=== PATIENT | male | born 1960 | race American Indian/Alaskan Native ===

== ENCOUNTER 2020-08-30 10:34 | Emergency (ER) | payer OTHER ==
[2020-08-30] MEDS ORDERED: cloNIDine 0.1 MG TAB PO ONE ×2 (12:33→14:21)
--- NOTE | 2020-08-30 12:37 | Emergency Department Report ---
ED Upper Extremity Inj HPI - General Chief Complaint: Extremity Injury, Upper Stated Complaint: WRIST INJURY Time Seen by Provider: 08/30/20 12:29 Source: patient Mode of arrival: Ambulatory Limitations: No Limitations - History of Present Illness Initial Comments: Patient is a 59-year-old male presents emergency room complaints of right hand pain that began yesterday. He states that he was changing a tire and it slipped and he had to press against the car and began feeling pain in the hand. He states he did began having pain and swelling to the right hand. He denies ever injuring in the past. He denies any wrist pain, elbow pain, shoulder pain. He denies anything falling onto the hand. He denies any numbness or weakness. He states he has pain with movement with making a fist. He has a past medical history of hypertension has not taken his medication for 1 year. He states he is not sure the name of his medication he was previously on. No allergies to medications. - Related Data Previous Rx's Medication Instructions Recorded Last Taken Type Naproxen [EC-Naprosyn] 500 mg PO BID PRN #14 tablet. 08/30/20 Unknown Rx amLODIPine 10 mg PO DAILY #30 tab 08/30/20 Unknown Rx hydroCHLOROthiazide [HCTZ] 25 mg PO QDAY #30 tablet 08/30/20 Unknown Rx ED Review of Systems ROS: Stated complaint: WRIST INJURY Other details as noted in HPI Comment: All other systems reviewed and negative ED Past Medical Hx - Past Medical History Hx Hypertension: Yes - Surgical History Additional Surgical History: knee surgery - Medications Home Medications: Home Medications Medication Instructions Recorded Confirmed Last Taken Type Naproxen [EC-Naprosyn] 500 mg PO BID PRN #14 tablet. 08/30/20 Unknown Rx amLODIPine 10 mg PO DAILY #30 tab 08/30/20 Unknown Rx hydroCHLOROthiazide [HCTZ] 25 mg PO QDAY #30 tablet 08/30/20 Unknown Rx ED Physical Exam - General Limitations: No Limitations General appearance: alert, in no apparent distress - Head Head exam: Present: atraumatic, normocephalic - Eye Eye exam: Present: normal appearance - ENT ENT exam: Present: mucous membranes moist - Respiratory Respiratory exam: Absent: respiratory distress, accessory muscle use - Extremities Exam Extremities exam: Present: other (ttp to the right hand overlying the 3rd and 4th metacarpal, no ttp to the right wrist or digits, no snuffbox ttp, no deformity, neurovascularly intact) - Neurological Exam Neurological exam: Present: alert, oriented X3 - Psychiatric Psychiatric exam: Present: normal affect, normal mood - Skin Skin exam: Present: warm, dry, intact ED Course Vital Signs 08/30/20 08/30/20 08/30/20 11:43 11:45 14:10 Temperature 98.2 F 98.2 F Pulse Rate 86 89 Respiratory 20 20 Rate Blood Pressure 216/139 206/124 201/135 O2 Sat by Pulse 97 96 Oximetry ED Medical Decision Making - Radiology Data Radiology results: report reviewed Ordering Physician: NATY GARCIA Date of Service: 08/30/20 Procedure(s): XR hand 3+V RT Accession Number(s): [id number] cc: NATY GARCIA Fluoro Time In Minutes: XR hand 3+V RT INDICATION / CLINICAL INFORMATION: right hand pain after injury. COMPARISON: None available. FINDINGS: BONES/JOINT(S): No acute fracture or subluxation. 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 SOFT TISSUES: No significant abnormality. ADDITIONAL FINDINGS: None. Signer Name: Yogesh Watts MD Signed: 08/30/2020 1:02 PM Workstation Name: [id number] Transcribed By: AGUSTO Dictated By: Yogesh Watts MD Electronically Authenticated By: Yogesh Watts MD Signed Date/Time: 08/30/20 1302 DD/ 1301 TD/TT: - Medical Decision Making Patient is a 59-year-old male presents emergency room complaints of right hand pain that began yesterday. He states that he was changing a tire and it slipped and he had to press against the car and began feeling pain in the hand. He states he did began having pain and swelling to the right hand. He denies ever injuring in the past. He denies any wrist pain, elbow pain, shoulder pain. He denies anything falling onto the hand. He denies any numbness or weakness. He states he has pain with movement with making a fist. He has a past medical history of hypertension has not taken his medication for 1 year. He states he is not sure the name of his medication he was previously on. No allergies to medications. Vitals with elevated blood pressure, otherwise vitals are normal. Patient is not having any symptoms related to his elevated blood pressure, he denies any chest pain, shortness of breath, vision changes, headache, numbness, weakness. On exam :ttp to the right hand overlying the 3rd and 4th metacarpal, no ttp to the right wrist or digits, no snuffbox ttp, no deformity, neurovascularly intact. XR right wrist: BONES/JOINT(S): No acute fracture or subluxation. 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 SOFT TISSUES: No significant abnormality. ADDITIONAL FINDINGS: None. Patient given clonidine but continued to have elevated blood pressure. Discussed with Dr. Alvarado, ER attending, he advised that patient is not having any symptoms, this is asymptomatic elevated blood pressure due to noncompliance for 1 year, he advised to discharge patient home with amlodipine and hydrochlorothiazide, no further work-up warranted at this time. Discussed all results with patient answered questions. Patient placed in Rich wrap by natural remedy consultant and remained neurovascular intact. Advised patient Please take medication as prescribed. Do not wear Rich bandage too tightly and do not wear at night while sleeping. Follow-up with a primary care doctor. Please keep a blood pressure log and take this to the primary care doctor. Increase your water intake. Eat a low-sodium/low salt diet. Incorporate 30 to 60 minutes daily exercise. Return to emergency room for any new or worsening symptoms. Critical care attestation.: If time is entered above; I have spent that time in minutes in the direct care o f this critically ill patient, excluding procedure time. ED Disposition Clinical Impression: Right hand pain, Elevated blood pressure reading, Non compliance w medication regimen Disposition: DC-01 TO HOME OR SELFCARE Is pt being admited?: No Does the pt Need Aspirin: No Condition: Stable Instructions: Managing Your Hypertension, Hand Pain Additional Instructions: Please take medication as prescribed. Do not wear Rich bandage too tightly and do not wear at night while sleeping. Follow-up with a primary care doctor. Please keep a blood pressure log and take this to the primary care doctor. Increase your water intake. Eat a low-sodium/low salt diet. Incorporate 30 to 60 minutes daily exercise. Return to emergency room for any new or worsening symptoms. Prescriptions: amLODIPine 10 mg PO DAILY #30 tab Naproxen [EC-Naprosyn] 500 mg PO BID PRN #14 tablet.dr WRIGHT Reason: pain hydroCHLOROthiazide [HCTZ] 25 mg PO QDAY #30 tablet Referrals: PRIMARY CAREMD [Primary Care Provider] - 2-3 Days ABIGAIL HUTCHINSON MD [Staff Physician] - 2-3 Days [facility] [Provider Group] - 2-3 Days Forms: Work/School Release Form(ED) Time of Disposition: 15:50 Print Language: TURKMEN
--- NOTE | 2020-08-30 13:18 | XRay Report ---
XR hand 3+V RT INDICATION / CLINICAL INFORMATION: right hand pain after injury. COMPARISON: None available. FINDINGS: BONES/JOINT(S): No acute fracture or subluxation. 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 SOFT TISSUES: No significant abnormality. ADDITIONAL FINDINGS: None. Signer Name: Yogesh Watts MD Signed: 08/30/2020 1:02 PM Workstation Name: [id number]
[2020-08-30 14:23] VITALS: BP 201/135
== END 2020-08-30 16:41 | disposition home or self-care (01) ==
LOC: ED 10:34
DX: M79.641 Pain in right hand (principal); R03.0 Elevated blood-pressure reading, without diagnosis of hypertension; Z91.14 Patient's other noncompliance with medication regimen; Z79.899 Other long term (current) drug therapy
CPT/HCPCS: 99283

== ENCOUNTER 2020-10-22 11:14 | Emergency (ER) | payer OTHER ==
--- NOTE | 2020-10-22 12:15 | Emergency Department Report ---
Chief Complaint: Abdominal Pain Stated Complaint: ABD PAIN, N/V Time Seen by Provider: 10/22/20 12:06 - HPI History of Present Illness: 59-year-old male patient with history of hypertension presents to the emergency requesting medical documentation stating he may return to work. Patient states he was experiencing abdominal pain and nausea for approximately 48 hours earlier this week. Symptoms resolved last night. He has a primary care provider and is already planning to call Saturday and schedule an appointment. He is currently asymptomatic. He has no new complaints. - ROS Review of Systems: GENERAL: Negative for fever. CARDIOVASCULAR: Negative for chest pain. PULMONARY: Negative for shortness of breath. GASTROINTESTINAL: Negative for abdominal pain. MUSCULOSKELETAL: Negative for back pain. NEUROLOGICAL: Negative for headache. INTEGUMENTARY: Negative for rash. - Exam Vital Signs: Vital Signs 10/22/20 11:57 Temperature 98.6 F Pulse Rate 75 Respiratory 20 Rate Blood Pressure 190/116 O2 Sat by Pulse 100 Oximetry Physical Exam: General: Awake and alert. No acute distress. Head: Atraumatic, normocephalic. Eyes: EOMI. Pupils are equal and round. Normal sclera and conjunctiva. ENT: Oral mucosa is moist. Normal pharyngeal exam. Neck: Supple. No lymphadenopathy. Pulmonary: No respiratory distress. Clear to auscultation bilaterally. Cardiac: Regular rate and rhythm. Pulses are palpable and equal bilaterally. No lower extremity cyanosis or edema. Skin: Warm and dry. No rashes. Abdomen: Soft, non-tender, non-protuberant. No guarding, rigidity, or rebound. Bowel sounds are normal. No organomegaly or masses noted. Back: Normal alignment. No CVA tenderness. Extremities: Symmetrical. Full range of motion intact. Neurological: Alert and oriented, appropriately interactive, no focal deficits. Psych: Cooperative. Appropriate mood and affect. Speech is evenly metered. Thoughts are logically construed. MSE screening note: Focused history and physical exam performed. Due to findings the following was ordered: ED Medical Decision Making - Medical Decision Making Patient presents emergency department requesting documentation from a medical provider stating he may return to work next week. The abdominal pain he was reportedly experiencing earlier this week has resolved. He is currently asymptomatic. He is afebrile, no tachycardia, no distress. Abdomen is soft, nontender, nondistended. There is no clinical indication for further diagnostic work-up on an emergent basis at this time, since his symptoms have resolved spontaneously. He has been asymptomatic for over 12 hours. Patient will be provided with written documentation of his medical screening examination and instructed to follow-up with his primary care provider next week. Patient expressed understanding and is agreeable to plan of care. Strict return precautions provided. Of note, patient's blood pressure was noted to be elevated in the emergency department. Patient has a history of hypertension. He normally takes his blood pressure medication in the morning. He did not take his medication today. He plans to take his medication as soon as he returns home. He is asymptomatic. Specifically, patient denies chest pain, shortness of breath, palpitations, syncope, headache, vision changes. Neurological exam is nonfocal and remainder of vital signs are stable. No clinical indication for further diagnostic work- up and/or emergent administration of antihypertensive therapy at this time per ACEP asymptomatic hypertension guidelines. Patient was encouraged to follow-up with primary care provider for blood pressure recheck next week. Lifestyle modifications recommended. ED Disposition for MSE Clinical Impression: Encounter for medical screening examination, History of hypertension Disposition: MED SCREENING EXAM-LEFT Is pt being admited?: No Does the pt Need Aspirin: No Condition: Stable Instructions: Medical Screening Exam, Hypertension, Adult Additional Instructions: Continue all medications as previously prescribed. Rest. Drink plenty of fluids. Gradually advance diet slowly as tolerated. Reduce your dietary sodium intake. Exercise daily. Follow-up with your primary care provider next week for repeat abdominal assessment and blood pressure recheck. Call Saturday to schedule an appointment. Return to the emergency department immediately for new or worsening symptoms. Pacifically, return to the emergency department immediately for headache, vision changes, chest pain, shortness of breath, abdominal pain, mental status changes, or any other concerns. Referrals: [facility] [Provider Group] - 3-5 Days Forms: Work/School Release Form(ED) Time of Disposition: 12:17
== END 2020-10-22 12:40 | disposition left against medical advice (07) ==
LOC: ED 11:14